=== PATIENT | female | born 1975 | race Caucasian/White ===

== ENCOUNTER 2017-09-18 11:43 | Observation (INO) | payer BC ==
[~2017-09-18] VITALS: Ht 167.6 cm; Wt 108.9 kg
== END 2017-09-18 14:02 | disposition home or self-care (01) ==
LOC: SPU 11:43
PROVIDERS: ADMIT Specialist; ATTEND Specialist
DX: Z34.93 Encounter for supervision of normal pregnancy, unspecified, third trimester (principal); Z3A.35 35 weeks gestation of pregnancy
CPT/HCPCS: 59025; 81002; G0378

== ENCOUNTER 2017-09-23 05:15 | Inpatient (IN) | payer BC ==
[~2017-09-23] VITALS: Ht 167.6 cm; Wt 124.3 kg
[2017-09-23] MEDS ORDERED: LR 1,000 ML IV ONE ×2 (06:34→08:31)
[2017-09-23 06:43] VITALS: BP_SYST 121
[2017-09-23] MEDS ORDERED: CEFAZOLIN 2 GM IVPB PREMIX 50 ML IV ONE (06:45)
[2017-09-23 06:58] LABS: BASOPHILS % (AUTO) 0.3 % (0.0-2.0); EOSINOPHILS % (AUTO) 0.3 % (0.0-4.0); HEMATOCRIT 42.4 % (36-48); LYMPHOCYTES # (AUTO) 2.2 K/uL (1.0-5.5); LYMPHOCYTES % (AUTO) 15.8 % (20.5-51.5); MEAN CORPUSCULAR HEMOGLOBIN 31 pg (27-31); MEAN CORPUSCULAR HGB CONC 33 % (32-36); MEAN CORPUSCULAR VOLUME 95 fL (79.0-98.0); NEUTROPHILS # (AUTO) 10.6 K/uL (1.8-7.7); NEUTROPHILS % (AUTO) 76.6 % (40.0-70.0); PLATELET COUNT (AUTO) 145 K/uL (130-430); RED BLOOD CELL COUNT(AUTO) 4.47 MIL/uL (4.2-6.2); RED CELL DISTRIBUTION WIDTH 12.2 % (9.0-15.0); WHITE BLOOD COUNT (AUTO) 13.8 K/uL (4.8-10.8)
[2017-09-23 07:10] LABS: BILIRUBIN,URINE NEGATIVE (NEGATIVE); BLOOD, URINE NEGATIVE (NEGATIVE); CLARITY/URINE CLEAR (CLEAR); COLOR,URINE YELLOW (YELLOW); GLUCOSE,URINE NEGATIVE (NEGATIVE); KETONES,URINE NEGATIVE (NEGATIVE); LEUKOCYTE ESTERASE ,URINE NEGATIVE (NEGATIVE); NITRITE, URINE NEGATIVE (NEGATIVE); PROTEIN URINE NEGATIVE (NEGATIVE); UROBILINOGEN,URINE 0.2 (0.2-1.0)
[2017-09-23] MEDS ORDERED: fentaNYL CITRATE/PF 100 MCG/2 ML AMP IVP ONE (07:31)
[2017-09-23] MEDS ORDERED: LR 1,000 ML IV.SOLN IV ONE (07:31)
[2017-09-23] MEDS ORDERED: METOCLOPRAMIDE HCL 10 MG/2 ML VIAL IVP ONE (07:31)
[2017-09-23] MEDS ORDERED: DEXAMETHASONE SOD PHOSPHATE 4 MG/ML VIAL IVP ONE (07:31)
[2017-09-23] MEDS ORDERED: MORPHINE SULFATE 10MG/10ML PF AMP EP ONE (07:31)
[2017-09-23] MEDS ORDERED: NS IRRIG SOLN 1000 ML IR ONE (07:31)
[2017-09-23] MEDS ORDERED: OXYTOCIN 10 UNIT/ML VIAL IV ONE (07:31)
[2017-09-23 08:41] VITALS: BP_SYST 100
[2017-09-23] MEDS ORDERED: LR 1,000 ML IV SCH (08:44)
[2017-09-23] MEDS ORDERED: OXYTOCIN/NORMAL SALINE 1,000 ML IV ONE ×2 (08:44→09:36)
[2017-09-23] MEDS ORDERED: NALOXONE HCL 0.4 MG/ML AMP (NARCAN) IVP PRN (08:45)
[2017-09-23] MEDS ORDERED: ONDANSETRON HCL 4 MG/2 ML VIAL IVP PRN ×2 (08:45)
[2017-09-23] MEDS ORDERED: ePHEDrine sulfate 50 MG/ML VIAL IVP PRN (08:45)
[2017-09-23] MEDS ORDERED: NALBUPHINE HCL 10 MG/ML AMP IVP PRN (08:45)
[2017-09-23] MEDS ORDERED: fentaNYL CITRATE/PF 100 MCG/2 ML AMP IVP PRN (08:45)
[2017-09-23] MEDS ORDERED: BISACODYL 10 MG/SUPPOSITORY RC PRN (08:45)
[2017-09-23] MEDS ORDERED: LANOLIN 7 GM OINT. TP PRN (08:45)
[2017-09-23] MEDS ORDERED: RHO(D) IMMUNE GLOBULIN/MALTOSE 1500 UNITS/1.3 ML (WINHRO) IM PRN (08:45)
[2017-09-23] MEDS ORDERED: ANUSOL 1 EA SUPP.RECT (PREPARATION H) RC PRN (08:45)
[2017-09-23] MEDS ORDERED: MEASLES,MUMPS&RUBELLA VACC/PF 12500 UNIT/0.5 ML VIAL SUBQ PRN (08:45)
[2017-09-23] MEDS ORDERED: DIPH-TET-PERTUS Vaccine 0.5 ML VIAL (ADACEL) I.M. PRN (08:45)
[2017-09-23] MEDS ORDERED: DIPHENHYDRAMINE INJ 50 MG/ML VIAL IVP PRN (08:45)
[2017-09-23] MEDS ORDERED: KETOROLAC TROMETHAMINE 30 MG VIAL IM PRN (08:45)
[2017-09-23] MEDS: CEFAZOLIN 1 GM IVPB PREMIX 50 ML IV SCH ×2 (14:02→21:55)
[2017-09-23] MEDS ORDERED: KETOROLAC TROMETHAMINE 30 MG VIAL IVP ONE (16:00)
[2017-09-23] MEDS ORDERED: TEMAZEPAM 15 MG CAPSULE PO PRN (21:00)
[2017-09-23] MEDS: KETOROLAC TROMETHAMINE 30 MG VIAL IVP SCH (21:56)
[2017-09-24] MEDS: KETOROLAC TROMETHAMINE 30 MG VIAL IVP SCH ×2 (04:08→09:57)
[2017-09-24] MEDS: CEFAZOLIN 1 GM IVPB PREMIX 50 ML IV SCH (04:09)
[2017-09-24] MEDS: SIMETHICONE 80 MG TAB.CHEW PO PRN (06:54)
[2017-09-24] MEDS: SENNOSIDES/DOCUSATE SODIUM 1 TAB TABLET(SENOKOT-S) PO PRN (06:54)
[2017-09-24] MEDS: DOCUSATE SODIUM 100 MG CAPSULE PO PRN ×2 (06:54→21:36)
[2017-09-24 08:14] LABS: BASOPHILS % (AUTO) 0.3 % (0.0-2.0); EOSINOPHILS % (AUTO) 0.3 % (0.0-4.0); HEMATOCRIT 35.9 % (36-48); LYMPHOCYTES # (AUTO) 2.8 K/uL (1.0-5.5); LYMPHOCYTES % (AUTO) 20.9 % (20.5-51.5); MEAN CORPUSCULAR HEMOGLOBIN 32 pg (27-31); MEAN CORPUSCULAR HGB CONC 33 % (32-36); MEAN CORPUSCULAR VOLUME 95 fL (79.0-98.0); MONOCYTES % (AUTO) 7.3 % (1.7-9.3); NEUTROPHILS # (AUTO) 9.6 K/uL (1.8-7.7); NEUTROPHILS % (AUTO) 71.2 % (40.0-70.0); PLATELET COUNT (AUTO) 117 K/uL (130-430); RED BLOOD CELL COUNT(AUTO) 3.77 MIL/uL (4.2-6.2); WHITE BLOOD COUNT (AUTO) 13.4 K/uL (4.8-10.8)
[2017-09-24 08:18] LABS: HEMOGLOBIN 11.9 g/dL (12.0-16.0)
[2017-09-24] MEDS: IBUPROFEN 600 MG TABLET PO SCH ×2 (12:23→17:54)
[2017-09-24] MEDS: OXYCODONE/ACETAMINOPHEN 5-325 TABLET PO PRN ×3 (12:24→21:37)
[2017-09-24] MEDS: HYDROcodone/ACETAMIN 5-325 MG TAB (NORCO/ VICODIN) PO PRN (21:39)
[2017-09-25] MEDS: IBUPROFEN 600 MG TABLET PO SCH ×4 (00:43→18:19)
[2017-09-25] MEDS: SIMETHICONE 80 MG TAB.CHEW PO PRN (05:51)
[2017-09-25] MEDS: SENNOSIDES/DOCUSATE SODIUM 1 TAB TABLET(SENOKOT-S) PO PRN (05:52)
[2017-09-25] MEDS: OXYCODONE/ACETAMINOPHEN 5-325 TABLET PO PRN ×3 (05:53→23:43)
[2017-09-25] MEDS: HYDROcodone/ACETAMIN 5-325 MG TAB (NORCO/ VICODIN) PO PRN (14:24)
[2017-09-26] MEDS: IBUPROFEN 600 MG TABLET PO SCH ×2 (00:18→05:43)
[2017-09-26] MEDS: OXYCODONE/ACETAMINOPHEN 5-325 TABLET PO PRN ×2 (05:42→11:16)
[2017-09-26] MEDS: DOCUSATE SODIUM 100 MG CAPSULE PO PRN (11:12)
== END 2017-09-26 15:00 | disposition home or self-care (01) | DRG 765 ==
LOC: SPU 05:15
PROVIDERS: ADMIT Specialist; ATTEND Specialist
PROC: 10D00Z1 Extraction of Products of Conception, Low, Open Approach (ICD-10-PCS; principal; 2017-09-24)
PROC: 0UL70CZ Occlusion of Bilateral Fallopian Tubes with Extraluminal Device, Open Approach (ICD-10-PCS; 2017-09-24)
DX: O34.211 Maternal care for low transverse scar from previous cesarean delivery (principal); O99.12 Other diseases of the blood and blood-forming organs and certain disorders involving the immune mechanism complicating childbirth; D69.6 Thrombocytopenia, unspecified; Z30.2 Encounter for sterilization; O09.523 Supervision of elderly multigravida, third trimester; Z3A.37 37 weeks gestation of pregnancy; Z37.0 Single live birth
CPT/HCPCS: 36415; 81003; 85025; 86592; 86886; 86900; 86901; 94760; J0690; J1100; J1200; J1885; J2274; J2590; J2765; J3010; J7120